=== PATIENT | female | born 1960 | race Caucasian/White ===

== ENCOUNTER 2018-04-16 17:15 | Inpatient (IN) ==
[2018-04-16] MEDS ORDERED: Dextrose 50% in Water 50 ML Vial IV.PUSH PRN (22:37)
[2018-04-16] MEDS ORDERED: Bisacodyl 10 MG Supp RECTAL PRN (22:37)
--- NOTE | 2018-04-16 22:44 | P.HPCC ---
History of Present Illness Primary Care Physician: No Primary Care Physician History of Present Illness: 57-year-old -[place]ian female with past medical history significant for diabetes mellitus, hypertension, dyslipidemia, presented to emergency department at [facility] as a wake up STROKE. Her chief complaint was left upper and left lower extremity weakness that began when she woke up in the morning. She had no symptoms when she went to bed in the evening and night before. She denies any visual changes, headaches, nausea, or vomiting. She denies experiencing similar symptoms in the past. Prior to episode patient was in her usual health of state. The patient is 55-year-old brother recently had a stroke a few months ago. She denies any chest pain, palpitation, shortness of breath or diaphoresis. She denies any recent changes in medications, but does take estradiol. She denies tobacco abuse. MRI of the brain shows multiple infarcts in the right cerebral hemisphere mainly in the frontal lobe, temporal lobe, and a infarct affecting the caudate nucleus. 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 This is most likely the cause of her stroke and patient was therefore transferred to [facility] for higher level of care neurosurgery evaluation by Dr. Knight. Inpatient Certification: I certify that the inpatient services were ordered in accordance with Medicare regulations governing the order. This includes certification that hospital inpatient services are reasonable and necessary and in the case of services not specified as inpatient-only under 42 CFR 419.22(n), that they are appropriately provided as inpatient services in accordance to with the 2-midnight benchmark under 43 CFR 412.3(e) Estimated Total Length of Stay (Days): 5 Plans for Post Hospital Care: Not yet determined Review of Systems Constitutional: Denies anorexia, Denies body ache(s), Denies chills, Denies daytime sleepiness, Denies excessive sweating, Denies fatigue, Denies fever(s), Denies headache(s), Denies increased appetite, Denies lack of energy, Denies malaise, Denies night sweats, Denies weakness, Denies weight gain, Denies weight loss, Denies other Eyes: Denies blind spots, Denies blurry vision, Denies bulging eyes, Denies change in vision, Denies double vision, Denies discharge, Denies dry eyes, Denies floaters, Denies irritation, Denies itchy eyes, Denies loss of vision, Denies pain, Denies requires corrective lenses, Denies sensitivity to light, Denies other Ears, Nose, Mouth, and Throat: Denies abnormal hearing, Denies bleeding gums, Denies bad breath, Denies change in voice, Denies dental pain, Denies difficulty swallowing, Denies dizziness, Denies dry mouth, Denies ear discharge , Denies ear pain, Denies facial pain, Denies headache(s), Denies hearing loss, Denies hoarseness, Denies lip swelling, Denies nosebleed, Denies mouth lesions, Denies mouth pain, Denies nasal congestion, Denies nasal discharge, Denies nasal obstruction, Denies nasal trauma, Denies neck lump, Denies neck pain, Denies nose pain, Denies pain with swallowing, Denies poor balance, Denies post nasal drip, Denies ringing in the ears, Denies sinus pain, Denies sinus pressure , Denies sore throat, Denies throat swelling, Denies tongue swelling, Denies other Cardiovascular: Denies chest pain, Denies chest pain at rest, Denies chest pain with activity, Denies excessive sweating, Denies fainting, Denies fast heart rate, Denies foot swelling, Denies generalized swelling, Denies irregular heart rhythm, Denies leg pain with activity, Denies leg sores, Denies leg swelling, Denies lightheadedness, Denies radiating jaw, neck or arm pain, Denies rapid, pounding, or irregular heartbeat, Denies shortness of breath, Denies shortness of breath with activity, Denies shortness of breath when lying down, Denies shortness of breath causing sudden awakening, Denies slow heart rate, Denies other Respiratory: Denies change in phlegm color, Denies chest congestion, Denies cough, Denies coughing up blood, Denies excessive phlegm production, Denies pain on inspiration, Denies pain with cough, Denies shortness of breath, Denies shortness of breath with activity, Denies snoring, Denies stridor, Denies wheezing, Denies other Gastrointestinal: Denies abdominal pain, Denies belching, Denies black, tarry stools, Denies bloating, Denies bright, red blood in stools, Denies change in bowel habits, Denies constant urge to pass stool, Denies change in stools, Denies coffee ground vomit, Denies constipation, Denies cramping, Denies difficulty swallowing, Denies excessive passing of gas, Denies feeling full early, Denies heartburn, Denies incontinent of stools, Denies loose stools, Denies nausea, Denies pain with swallowing, Denies vomiting, Denies vomiting blood, Denies other Genitourinary: Denies abnormal periods, Denies abnormal vaginal bleeding, Denies absent period, Denies bleeding between periods, Denies blood in urine, Denies difficulty starting urination, Denies difficulty urinating, Denies dribbling after urination, Denies frequent nighttime urination, Denies genital itching, Denies genital lesions, Denies heavy periods, Denies hot flashes, Denies light periods, Denies nipple discharge, Denies painful intercourse, Denies painful periods, Denies painful urination, Denies pelvic pain, Denies prolapse symptoms, Denies sexual problems, Denies side pain, Denies urinary incontinence, Denies urinary urgency, Denies vaginal discharge, Denies vaginal dryness, Denies vaginal odor, Denies vaginal itching, Denies other Musculoskeletal: Reports abnormal walking, Denies back pain, Denies body aches, Denies decreased muscle mass, Denies deformity, Denies joint pain, Denies joint swelling, Denies limited joint movement, Denies loss of height, Denies muscle cramps, Denies muscle weakness, Denies neck pain, Denies numbness, Denies radiating pain into limb, Denies stiffness, Denies tingling, Denies other Skin/Breast: Denies acne, Denies bleeding lesions, Denies boil, Denies breast swelling, Denies breast skin changes, Denies breast pain, Denies breast lump, Denies change in breast shape, Denies change in hair, Denies change in skin color, Denies changing lesions, Denies dry skin, Denies excessive hair growth, Denies hair loss, Denies itching, Denies lesions, Denies nail changes, Denies new lesions, Denies nipple discharge, Denies non-healing lesions, Denies redness , Denies sensitivity to light, Denies rash, Denies skin pain, Denies skin ulcer , Denies sores, Denies stretch sp[place], Denies unusual bruising, Denies wounds, Denies yellowing of the skin, Denies other Neurologic: Reports abnormal movements, Reports abnormal walking, Reports localized weakness, Reports sensory deficit, Denies abnormal hearing, Denies abnormal speech, Denies behavioral changes, Denies burning sensations, Denies confusion, Denies dizziness, Denies fainting, Denies frequent falls, Denies headache(s), Denies lack of coordination, Denies loss of vision, Denies memory loss, Denies numbness, Denies other visual disturbances, Denies radiating pain, Denies restless legs, Denies convulsions, Denies seizure-like activity, Denies tingling, Denies tingling/numbness/burning sensations, Denies tremor(s), Denies unsteadiness, Denies weakness, Denies other Psychiatric: Denies abnormal sleep pattern, Denies anxiety, Denies behavioral changes, Denies change in appetite, Denies change in sex drive, Denies confusion , Denies depression, Denies difficulty concentrating, Denies hearing things others do not hear, Denies hopelessness, Denies irritability, Denies lack of enjoyment, Denies memory loss, Denies mood swings, Denies panic attacks, Denies paranoia, Denies seeing things others do not see, Denies sensing things others do not sense, Denies tactile hallucinations, Denies thoughts of hurting/killing others, Denies thoughts of hurting/killing yourself, Denies other PMFSH - Medical History Medical History: Medical History (Last Updated 04/16/18 @ 22:27 by Megha Frost RN) Diabetes mellitus Hyperlipemia Hypertension - Tobacco History Second Hand Smoke Exposure: No Tobacco Use In Past 30 Days: No Smoking Status: Never smoker - Alcohol History How Often Do You Have a Drink Containing Alcohol: Never - Substance Use History Substance History: No History of Abuse - Travel History History of Recent Travel: No Recent Travel in the [place] Within the Last 8 Weeks: No Recent Travel Out of the Country Within the Last 8 Weeks: No Medications and Allergies Active Medications: Active Medications Al Hydroxide/Mg Hydroxide (Milk Of Magnesia Liq) 30 ml PO Q12H PRN PRN Reason: Mild Constipation Amlodipine Besylate (Norvasc) 5 mg PO DAILY [facility] Atorvastatin Calcium (Lipitor) 20 mg PO DAILY [facility] Bisacodyl (Dulcolax Supp) 10 mg RECTAL DAILY PRN PRN Reason: SEVERE CONSITIPATION Chlorhexidine Gluconate (Chlorhexidine 2% Cloth) 3 pack TOPICAL DAILY@0400 PRN PRN Reason: Extra cloth needed Stop: 04/22/18 03:59 Chlorhexidine Gluconate (Chlorhexidine 2% Cloth) 3 pack TOPICAL DAILY@0400 [facility] Stop: 04/22/18 03:59 Dextrose (D50w Vial) 50 ml IV.PUSH UNSCH PRN PRN Reason: PER HYPOGLYCEMIA PROTOCOL Famotidine (Pepcid) 20 mg PO BID [facility] Famotidine (Pepcid Pf Inj) 20 mg IV.PUSH Q12HR [facility] Glucagon (Glucagon Inj) 1 mg OTHER PRN PRN PRN Reason: for Hypoglycemia Protocol Heparin Sodium (Porcine) (Heparin Inj) 5,000 units SQ Q8H [facility] Sodium Chloride (Ns Inj) 1,000 mls @ 84 mls/hr IV.CONT .[id number] [facility] Insulin Aspart (Novolog Insulin Suppl Scale Inj) 0 unit SQ ACHS [facility]; Protocol Lactulose (Lactulose Liq) 30 ml PO DAILY PRN PRN Reason: SEVERE CONSITIPATION Senna/Docusate Sodium (Carolyn-Colace) 1 tab PO BID [facility] Sennosides (Senokot) 17.2 mg PO Q12H PRN PRN Reason: Moderate Constipation Sodium Chloride (Ns Flush) 2 ml IV.FLUSH PRN PRN PRN Reason: FLUSH AFTER USING IV ACCESS Temazepam (Restoril) 15 mg PO HS PRN PRN Reason: INSOMNIA Valsartan (Diovan) 160 mg PO BID [facility] Allergies Allergy/AdvReac Type Severity Reaction Status Date / Time No Known Allergies Allergy Unverified 04/16/18 22:32 Home Medications Medication Instructions Recorded Confirmed Type alprazolam [Xanax] 1 PO HS PRN 04/16/18 History amlodipine [Norvasc] 5 mg PO DAILY 04/16/18 04/16/18 History atorvastatin [Lipitor] 20 mg PO DAILY 04/16/18 04/16/18 History metformin [Glucophage] 1,000 mg PO BID 04/16/18 04/16/18 History valsartan [Diovan] 160 mg PO BID 04/16/18 04/16/18 History Exam Vital signs: Intake & Output 04/16/18 04/16/18 04/17/18 06:59 18:59 06:59 Weight 76.5 kg Other: Weight On Admission 78.5 kg - Constitutional no acute distress - Routine HEENT Exam Head: Present: normocephalic, atraumatic Eye: Present: PERRL ENT: Present: mucous membranes moist - Routine Neck Exam Present: supple, full ROM. Absent: JVD - Routine Respiratory Exam Absent: accessory muscle use, rales, respiratory distress, rhonchi, stridor - Routine Cardiovascular Exam Present: RRR, S1, S2 - Routine Abdominal Exam Present: soft, normoactive bowel sounds - Detailed Abdominal Exam Palpation/Percussion: Absent: hepatomegaly - Routine Extremities Exam Absent: cyanosis, clubbing, edema - Routine Skin Exam Present: intact - Routine Neurological Exam Present: alert, oriented X3 Left-sided hemiplegia in upper and lower extremities Caprini VTE Risk Assessment Caprini VTE Risk Assessment: Moderate/High Risk (score >= 2) Caprini Risk Assessment Model: Point Value = 1 Point Value = 2 Point Value = 3 Point Value = 5 Age 41-60 Minor surgery BMI > 25 kg/m2 Swollen legs Varicose veins or History of unexplained or recurrent spontaneous Oral contraceptives or hormone replacement Sepsis (< 1 month) Serious lung disease, including pneumonia (< 1 month) Abnormal pulmonary function Acute myocardial infarction Congestive heart failure (< 1 month) History of inflammatory bowel disease Medical patient at bed rest Age 61-74 Arthroscopic surgery Major open surgery (> 45 min) Laparoscopic surgery (> 45 min) Malignancy Confined to bed (> 72 hours) Immobilizing plaster cast Central venous access Age >= 75 History of VTE Family history of VTE Factor V Leiden Prothrombin [id number] Lupus anticoagulant Anticardiolipin antibodies Elevated serum homocysteine Heparin-induced thrombocytopenia Other congenital or acquired thrombophilia Stroke (< 1 month) Elective arthroplasty Hip, pelvis, or leg fracture Acute spinal cord injury (< 1 month) Prophylaxis Regimen: Total Risk Factor Score Risk Level Prophylaxis Regimen 0-1 Low Early ambulation 2 Moderate Order ONE of the following: *Sequential Compression Device (SCD) *Heparin 5000 units SQ BID 3-4 Higher Order ONE of the following medications: *Heparin 5000 units SQ TID *Enoxaparin/Lovenox 40 mg SQ daily (WT < 150 kg, CrCl > 30 mL/min) *Enoxaparin/Lovenox 30 mg SQ daily (WT < 150 kg, CrCl > 10-29 mL/min) *Enoxaparin/Lovenox 30 mg SQ BID (WT < 150 kg, CrCl > 30 mL/min) AND/OR *Sequential Compression Device (SCD) 5 or more Highest Order ONE of the following medications: *Heparin 5000 units SQ TID (Preferred with Epidurals) *Enoxaparin/Lovenox 40 mg SQ daily (WT < 150 kg, CrCl > 30 mL/min) *Enoxaparin/Lovenox 30 mg SQ daily (WT < 150 kg, CrCl > 10-29 mL/min) *Enoxaparin/Lovenox 30 mg SQ BID (WT < 150 kg, CrCl > 30 mL/min) AND *Sequential Compression Device (SCD) Assessment and Plan - Assessment and Plan Plan: Subacute CVA -No indication for anticoagulation due to complete stroke -Neurology consultation -Aspirin, atorvastatin -PT and OT eval and treat as tolerated Right internal carotid atheroma -Vascular surgery consultation for evaluation of surgical intervention if indicated Hypertension -Norvasc, losartan Dyslipidemia -Atorvastatin Diabetes mellitus -Insulin sliding scale DVT GI prophylaxis -Teds SCDs -Subcu heparin -Pepcid Critical Care: The total critical care time was 35 minutes. Time to perform other separately billable procedures was not included in the critical care time.
[2018-04-16] MEDS: Heparin - SQ 10,000 UNITS/ML Vial SQ SCH (23:57)
[2018-04-16] MEDS: Sod Chloride 0.9% Inj 1,000 ML IV.CONT SCH (23:58)
[2018-04-16] MEDS: Temazepam 15 MG Capsule PO PRN (23:58)
--- NOTE | 2018-04-17 03:33 | CT ---
EXAM DATE: 04/17/2018 3:22 AM EDT AGE/SEX: 57 years / Female INDICATIONS: Stroke alert; slurred speech. CLINICAL DATA: This is the patient's initial encounter. Patient reports that signs and symptoms have been present for 1 day and indicates a pain score of Nonresponsive. MEDICAL/SURGICAL HISTORY: Stroke. None. RADIATION DOSE: 42.45 CTDI (mGy) COMPARISON: No prior exams available for comparison. Report was called by [ Dr. Hogue to Dr. Crowder at 0330. TECHNIQUE: CT of the head without contrast. Using automated exposure control and adjustment of the mA and/or kV according to patient size, radiation dose was kept as low as reasonably achievable to ob tain optimal diagnostic quality images. DICOM format image data is available electronically for revi ew and comparison. FINDINGS: Cerebrum: 1.5 cm hypodensity in the right frontal cortex on image #24. 2 cm hypodensity in the right temporal cortex on image #12. No evidence of mass effect. No acute intracranial hemorrhage. No midli ne shift. Ventricles within normal limits. Posterior Fossa: The cerebellum and brainstem are intact. The 4th ventricle is midline. The cerebe llopontine angle is unremarkable. Extracranial: The visualized portion of the orbits is intact. Skull: The calvaria is intact. No evidence of skull fracture. CONCLUSION: Nonspecific 1 to 2 cm cortical hypodensities in the right frontal and right temporal regions. May rep resent age-indeterminate ischemic change. No mass effect or acute hemorrhage identified. Electronically signed by: Mike Hogue MD 04/17/2018 3:32 AM EDT
[2018-04-17 03:47] LABS: Activated Partial Thrombo Time 24.2 sec (24.3-30.1); Prothrombin Time 10.5 sec (9.8-11.6)
[2018-04-17] MEDS ORDERED: Chlorhexidine Gluconate 2% 1 Pack (2 Cloths) TOPICAL PRN (04:00)
[2018-04-17 04:16] LABS: Baso # (Auto) 0.1 th/mm3 (0.0-0.2); Baso % (Auto) 1.2 % (0.0-2.0); Eos # (Auto) 0.2 th/mm3 (0.0-0.4); Eos % (Auto) 2.6 % (0.0-4.0); Hematocrit 41.3 % (35.0-46.0); Hemoglobin 13.9 gm/dL (11.6-15.3); Lymph # (Auto) 3.2 th/mm3 (1.0-4.8); Lymph % (Auto) 40.9 % (9.0-44.0); Mean Corpuscular HGB Conc 33.7 % (32.0-36.0); Mean Corpuscular Hemoglobin 29.9 pg (27.0-34.0); Mean Corpuscular Volume 88.9 fL (80.0-100.0); Mono # (Auto) 0.5 th/mm3 (0.0-0.9); Mono % (Auto) 6.1 % (0.0-8.0); Neut # (Auto) 3.8 th/mm3 (1.8-7.7); Neut % (Auto) 49.2 % (16.0-70.0); Platelet Count 220 th/mm3 (150-450); Red Blood Count 4.65 mil/mm3 (4.00-5.30); Red Cell Distribution Width 14.6 % (11.6-17.2); White Blood Count 7.8 th/mm3 (4.0-11.0)
--- NOTE | 2018-04-17 04:25 | CT ---
EXAM DATE: 04/17/2018 4:13 AM EDT AGE/SEX: 57 years / Female INDICATIONS: Stroke alert; slurred speech. CLINICAL DATA: This is the patient's initial encounter. Patient reports that signs and symptoms have been present for 1 day and indicates a pain score of Nonresponsive. MEDICAL/SURGICAL HISTORY: Stroke. None. RADIATION DOSE: 17.66 CTDI (mGy) ; Combined studies COMPARISON: No prior exams available for comparison. TECHNIQUE: Volumetric scanning was performed using a multi-row detector CT scanner during bolus infu sandra of 100 ml Omnipaque 350 (iohexol) nonionic water-soluble contrast as a cumulative dose for mult iple exams. The data was post processed with a variety of visualization algorithms including full v olume maximum intensity projection, multi-planar sliding thin slab reformation, curved planar reforma tion, and surface rendering techniques. Using automated exposure control and adjustment of the mA an d/or kV according to patient size, radiation dose was kept as low as reasonably achievable to obtain optimal diagnostic quality images. DICOM format image data is available electronically for review an d comparison. FINDINGS: There is cut off of the posterior division of the right MCA distal to the trifurcation. Asymmetric de creased opacification of branches to the right parietal lobe and temporal lobe noted. No central occl usion or high-grade stenosis is seen. Anterior and posterior cerebral arteries are widely patent. Intracranial portions of the internal car otid arteries are patent. CONCLUSION: Occlusion of the posterior division of the right MCA proximally 1.7 cm distal to the trifurcation. Electronically signed by: Mike Hogue MD 04/17/2018 4:23 AM EDT
--- NOTE | 2018-04-17 04:41 | CT ---
EXAM DATE: 04/17/2018 4:34 AM EDT AGE/SEX: 57 years / Female INDICATIONS: Stroke alert; slurred speech. CLINICAL DATA: This is the patient's initial encounter. Patient reports that signs and symptoms have been present for 1 day and indicates a pain score of 5/10. MEDICAL/SURGICAL HISTORY: Stroke. None. RADIATION DOSE: 17.66 CTDI (mGy) ; Combined studies COMPARISON: No prior exams available for comparison. TECHNIQUE: Volumetric scanning was performed using a multirow detector CT scanner during bolus infus ion of 100 ml Omnipaque 350 (iohexol) nonionic water-soluble contrast as a cumulative dose for multi ple exams. The data was postprocessed with a variety of visualization algorithms including full-vol ume maximum intensity projection, multiplanar sliding thin-slab reformation, curved-planar reformatio n, and surface-rendering techniques. Using automated exposure control and adjustment of the mA and/o r kV according to patient size, radiation dose was kept as low as reasonably achievable to obtain opt imal diagnostic quality images. DICOM format image data is available electronically for review and c omparison. Elevated flow velocities and ICA/CCA ratios have been found to correlate with increased degrees of ve ssel stenosis, calculated as percentage of diameter relative to a normal segment of distal ICA/CCA. FINDINGS: There is focal eccentric plaque in the mid right common carotid artery resulting in approximately 50% stenosis. This is 5 cm proximal to the bifurcation. No other significant plaque or stenosis identifi ed in the carotid arteries on the right or left. Proximal subclavian arteries are widely patent. Vert ebral arteries are symmetric and widely patent. CONCLUSION: 1. Focal eccentric plaque of the mid right common carotid artery resulting in approximately 50% sten osis. 2. No hemodynamically significant carotid stenosis identified. Electronically signed by: Mike Hogue MD 04/17/2018 4:40 AM EDT
[2018-04-17 04:54] LABS: Atypical Lymphs 7 % (0-0); Eosinophils 4 % (0-4); Lymphocytes 37 % (9-44); Metamyelocytes 2 % (0-1); Monocytes 4 % (0-8); Myelocytes 1 % (0-0); Platelet Estimate Normal (Normal); RBC Morphology Normal (Normal)
[2018-04-17] MEDS ORDERED: Atropine Inj 1 MG/10 ML Syringe ONE (05:36)
--- NOTE | 2018-04-17 06:25 | MB ---
cc: Kash Crowder MD, PhD DATE: 04/17/2018 REASON FOR CONSULTATION: Stroke. HISTORY OF PRESENT ILLNESS: Ms. Saucedo is a 57-year-old female, who 2 days ago developed the acute onset of left-sided weakness involving the arm and leg and was admitted to [facility]. She was weak in both the left arm and left leg, had flaccid paralysis and inability to move those extremities. She had an MRI of the brain done showing multiple infarcts in the right hemisphere, mainly frontal lobe, temporal lobe and also of the caudate nucleus. Carotid ultrasound revealed a mobile plaque in the right common carotid artery. She was transferred to [facility] for further evaluation regarding the right carotid plaque. At about 3:00 this morning, she had an acute change in her neurologic status. She developed severe dysarthria, which is new; a left facial droop, which was new and also a right gaze, which was new. PAST MEDICAL HISTORY: Remarkable for hypertension, diabetes, and hyperlipidemia. SOCIAL HISTORY: No history of tobacco use. No history of alcohol use. No history of substance abuse. CURRENT MEDICATIONS: 1. Lipitor 20 mg daily. 2. Norvasc 5 mg daily. 3. Dulcolax suppository. 4. Pepcid. 5. Subcutaneous heparin 5000 units every 8 hours. 6. Sliding scale insulin. 7. Lactulose. 8. Senokot. 9. Restoril. 10. Diovan. NEUROLOGIC EXAMINATION. VITAL SIGNS: Blood pressure is 172/80, pulse 73. She is in normal sinus rhythm, respirations are 16, temperature 98.6 degrees. HIGHER CORTICAL FUNCTION: She is lethargic, but easily arousable. She follows commands. Her speech is very dysarthric, not aphasic. She can repeat simple phrases with dysarthria. CRANIAL NERVE EXAM: She has a right gaze preference, but she is able to move the eyes conjugately past midline to the left. Pupils are 2 mm, symmetric and reactive to light. Visual howard grossly intact to confrontation. She does have a moderate left upper motor neuron cranial nerve VII palsy. Tongue protrudes in the midline. Other cranial nerves are intact. MOTOR EXAM: She is flaccid in the left arm and left leg with essentially 0/5 strength left arm and left leg, with normal strength on the right. Reflexes are 2+ symmetric. Sensation is diminished in left arm and left leg to soft touch compared with the right. IMAGING STUDIES: Since the change in neurologic status, we did obtain a stat CT which is reviewed showing two areas of hypodensity measuring 1-2 cm, one in the right frontal area and one in the right temporal region representing age indeterminate ischemic changes. There is no hemorrhage. CT angiogram was also obtained since her neurologic change. CTA of the head reveals occlusion of the posterior division of the right MCA and the M2 area approximately 1.7 cm distal to the trifurcation. CT angiogram of the neck is reviewed as well and shows focal eccentric plaque in the right mid common carotid artery with approximately 50% stenosis located about 5 cm proximal to the bifurcation. LABORATORY DATA: The white count is 7800; hemoglobin 13.9; hematocrit 41.3%; platelets are 220,000. PT 10.5, INR 1.0, APTT 24.2. Sodium is 139, potassium 3.9, chloride 101, BUN is 15, creatinine 0.7, glucose is 172. IMPRESSION AND RECOMMENDATIONS: Right middle cerebral artery distribution stroke, which initially occurred 2 days ago. There has been a recent change in neurologic status, probably reflecting an additional infarct in the right middle cerebral artery territory. She does have evidence of a plaque in the right carotid, which may be etiologic in this. I have discussed the case with Dr. Carbone of interventional radiology for evaluation as to whether or not the patient would be a candidate for intervention. Currently, the concern is the distal nature of the middle cerebral artery thrombus as well as the timing given the fact that she had a stroke 2 days ago, likely excludes her as a candidate for intervention. However, I will evaluate the patient further with an MRI as well as an MR perfusion study to further evaluate the age of the infarct. Further recommendations forthcoming after the MRI scan is obtained, which will be done on an emergent basis. Thank you for asking me to see this patient in consultation. Kash Crowder MD, PhD STEVEN/LUKE , 05:09 AM , 06:24 AM
[2018-04-17 06:29] LABS: Alanine Aminotransferase 25 U/L (10-53); Albumin 3.4 g/dL (3.4-5.0); Anion Gap 10 meq/L (5-15); Aspartate Aminotransferase 18 U/L (15-37); Blood Urea Nitrogen 13 mg/dL (7-18); Calcium 9.1 mg/dL (8.5-10.1); Carbon Dioxide 25.6 meq/L (21.0-32.0); Chloride 101 meq/L (98-107); Cholesterol 233 mg/dL (120-200); Glomerular Filtration Rate 79 mL/min (>89); Glucose,Random 190 mg/dL (74-106); Magnesium 1.9 mg/dL (1.5-2.5); Phosphorus 3.4 mg/dL (2.5-4.9); Potassium 3.9 meq/L (3.5-5.1); Sodium 137 meq/L (136-145); Triglycerides 215 mg/dL (42-150)
[2018-04-17 06:31] LABS: Alkaline Phosphatase 87 U/L (45-117); Chol/HDL Ratio 6.24 Ratio; HDL Cholesterol 37.3 mg/dL (40.0-60.0); LDL Cholesterol,Calculated 153 mg/dL (0-99); Total Protein 7.8 g/dL (6.4-8.2)
--- NOTE | 2018-04-17 06:44 | MR ---
EXAM DATE: 04/17/2018 6:28 AM EDT AGE/SEX: 57 years / Female INDICATIONS: Stroke. Slurred speech. CLINICAL DATA: This is the patient's initial encounter. Patient reports that signs and symptoms have been present for 2 days and indicates a pain score of 9/10. MEDICAL/SURGICAL HISTORY: Hypertension. Diabetes mellitus type II. Colostomy. Gastric bypass. COMPARISON: No prior exams available for comparison. TECHNIQUE: Multiplanar, multisequence examination of the brain was performed without and with 20 ml O mniscan (gadodiamide) contrast as a single exam dose. FINDINGS: Diffusion Imaging: Multiple areas of restricted diffusion are seen in the distribution of the right middle cerebral artery. The largest confluent area of restricted diffusion is seen in the right parie young lobe measuring 6 cm x 4 cm. 4.6 x 1.2 cm area is seen in the lateral right temporal lobe. 1 cm fo cus of restricted diffusion is seen in the right caudate nucleus. No foci of restricted diffusion on the left. Cerebrum: Areas of signal abnormality are seen on the FLAIR images/ T2-weighted images correlating w ith the areas of restricted diffusion in the right cerebral hemisphere. The largest area of restricte d diffusion in the right parietal lobe correlates with a faint area of signal abnormality on FLAIR im ages. No evidence of mass effect or midline shift. No acute intracranial hemorrhage or extra-axial fl uid collection. Ventricles within normal limits. Posterior Fossa: The cerebellum and brainstem are intact. The 4th ventricle is midline. The cerebel lopontine angle is unremarkable. The cerebellar tonsils are normal in position. Extracranial: The visualized portions of the orbits and paranasal sinuses are unremarkable. Post Contrast: No abnormal areas of parenchymal or dural enhancement. No evidence of blood-brain ba rrier breakdown. CONCLUSION: Multiple areas of acute infarct in the distribution of the right MCA. Largest area involves the right parietal lobe. No evidence of midline shift/herniation. No evidence of hemorrhage. Electronically signed by: Mike Hogue MD 04/17/2018 6:43 AM EDT
[2018-04-17] MEDS: Chlorhexidine Gluconate 2% 1 Pack (2 Cloths) TOPICAL SCH (06:50)
[2018-04-17] MEDS ORDERED: Gadodiamide PF Inj 287 MG/ML 5 ML Syringe (for RAD MRI) IVCONTRAST ONE (06:53)
--- NOTE | 2018-04-17 08:03 | MR ---
EXAM DATE: 04/17/2018 7:08 AM EDT AGE/SEX: 57 years / Female INDICATIONS: Stroke. CLINICAL DATA: This is the patient's initial encounter. Patient reports that signs and symptoms have been present for 2 days and indicates a pain score of 8/10. MEDICAL/SURGICAL HISTORY: Hypertension. Diabetes mellitus type II. Hypercholesterolemia. [place] stomy. Gastric bypass. COMPARISON: C, MR HEAD W & W/O CONTRAST, 04/17/2018. C, CTA HEAD W CONTRAST W 3D, 04/17/2018. C, CT HEAD W/O CONTRAST, 04/17/2018. . TECHNIQUE: Whole brain MRI perfusion was performed with 20 ml Omniscan (gadodiamide) contrast as a s melecio exam dose. Parametric maps generated included time to peak, mean transit time, cerebral blood volume and cerebral blood flow. FINDINGS: There is an area of decreased perfusion in the right parietal lobe corresponding with an area of acut e infarction. There is decreased time to peak, mean transit time, cerebral blood volume and cerebral blood flow. This corresponds to the area of restricted diffusion on prior MRIs of the brain consisten t with infarcted core. No signs of penumbra. No other areas of significant significant perfusion abno rmality bilaterally. CONCLUSION: 1. Infarction right parietal lobe. Electronically signed by: Harsha Frances MD 04/17/2018 8:02 AM EDT
[2018-04-17] MEDS: Aspirin 325 MG Tablet PO SCH (08:43)
[2018-04-17] MEDS: Heparin - SQ 10,000 UNITS/ML Vial SQ SCH ×3 (08:59→23:23)
[2018-04-17] MEDS: amLODIPine 5 MG Tablet PO SCH (09:02)
[2018-04-17] MEDS: Senna/Docusate Sodium 8.6/50 MG Tablet PO SCH ×2 (09:03→21:31)
[2018-04-17] MEDS: Famotidine PF Inj 20 MG/2 ML Vial IV.PUSH SCH ×2 (09:03→21:31)
[2018-04-17] MEDS: Insulin NovoLOG Aspart Correctional Sugar Inj SQ SCH ×4 (09:04→21:31)
[2018-04-17] MEDS: Famotidine 20 MG Tablet PO SCH ×2 (09:05→21:31)
--- NOTE | 2018-04-17 09:44 | P.CONVS ---
History of Present Illness Service: ICU Consult date: 04/17/18 Requesting Physician: Goran Andino Reason for Consult: Stroke Primary Care Provider: No Primary Care Physician Chief Complaint: Stroke History of Present Illness: 57 yo female who by report awoke morning with L hemiparesis and inability to walk. Presented to OSH and I rec'd a call yesterday req transfer. Admitted to ICU and overnight had worsening of stroke/new symptoms manifesting as dysarthria. According to RN, that has slightly improved. Still able to swallow some by report. Pt largely noncommunicative at present so history obtained from EMR, RN, and outside physician. Review of Systems unobtainable due to mental status PMFSH - History History Provided By: Medical Record - Medical History Medical History: Medical History (Last Reviewed 04/17/18 @ 09:38 by Delvis Knight MD) Diabetes mellitus Hyperlipemia Hypertension Stroke - Surgical History Surgical History: Surgical History (Last Reviewed 04/17/18 @ 09:38 by Delvis Knight MD) H/O gastric bypass Hx of cholecystectomy - Family History Family History: Family History (Last Updated 04/17/18 @ 09:39 by Delvis Knight MD) Other Stroke - Tobacco History Second Hand Smoke Exposure: No Tobacco Use In Past 30 Days: No Smoking Status: Never smoker - Alcohol History How Often Do You Have a Drink Containing Alcohol: Never - Substance Use History Substance History: No History of Abuse - Travel History History of Recent Travel: No Recent Travel in the [place] Within the Last 8 Weeks: No Recent Travel Out of the Country Within the Last 8 Weeks: No - Immunization History Tetanus Immunization: Unsure Hx Influenza Vaccine This Season: No Medications and Allergies Active Medications: Active Medications Al Hydroxide/Mg Hydroxide (Milk Of Indu James) 30 ml PO Q12H PRN PRN Reason: Mild Constipation Amlodipine Besylate (Norvasc) 5 mg PO DAILY [facility] Last Admin: 04/17/18 09:02 Dose: Not Given Aspirin (Aspirin) 325 mg PO DAILY [facility] Last Admin: 04/17/18 08:43 Dose: 325 mg Atorvastatin Calcium (Lipitor) 20 mg PO DAILY [facility] Last Admin: 04/17/18 09:02 Dose: 20 mg Bisacodyl (Dulcolax Supp) 10 mg RECTAL DAILY PRN PRN Reason: SEVERE CONSITIPATION Chlorhexidine Gluconate (Chlorhexidine 2% Cloth) 3 pack TOPICAL DAILY@0400 PRN PRN Reason: Extra cloth needed Stop: 04/22/18 03:59 Chlorhexidine Gluconate (Chlorhexidine 2% Cloth) 3 pack TOPICAL DAILY@0400 [facility] Stop: 04/22/18 03:59 Last Admin: 04/17/18 06:50 Dose: Not Given Clopidogrel Bisulfate (Plavix) 75 mg PO DAILY [facility] Last Admin: 04/17/18 08:42 Dose: 75 mg Dextrose (D50w Vial) 50 ml IV.PUSH UNSCH PRN PRN Reason: PER HYPOGLYCEMIA PROTOCOL Famotidine (Pepcid) 20 mg PO BID [facility] Last Admin: 04/17/18 09:05 Dose: Not Given Famotidine (Pepcid Pf Inj) 20 mg IV.PUSH Q12HR [facility] Last Admin: 04/17/18 09:03 Dose: 20 mg Glucagon (Glucagon Inj) 1 mg OTHER PRN PRN PRN Reason: for Hypoglycemia Protocol Heparin Sodium (Porcine) (Heparin Inj) 5,000 units SQ Q8H [facility] Last Admin: 04/17/18 08:59 Dose: 5,000 units Sodium Chloride (Ns Inj) 1,000 mls @ 84 mls/hr IV.CONT .[id number] [facility] Last Admin: 04/16/18 23:58 Dose: 84 mls/hr Insulin Aspart (Novolog Insulin Suppl Scale Inj) 0 unit SQ ACHS [facility]; Protocol Last Admin: 04/17/18 09:04 Dose: Not Given Lactulose (Lactulose Liq) 30 ml PO DAILY PRN PRN Reason: SEVERE CONSITIPATION Senna/Docusate Sodium (Carolyn-Colace) 1 tab PO BID [facility] Last Admin: 04/17/18 09:03 Dose: Not Given Sennosides (Senokot) 17.2 mg PO Q12H PRN PRN Reason: Moderate Constipation Sodium Chloride (Ns Flush) 2 ml IV.FLUSH PRN PRN PRN Reason: FLUSH AFTER USING IV ACCESS Temazepam (Restoril) 15 mg PO HS PRN PRN Reason: INSOMNIA Last Admin: 04/16/18 23:58 Dose: 15 mg Valsartan (Diovan) 160 mg PO BID [facility] Last Admin: 04/17/18 09:01 Dose: Not Given Allergies Allergy/AdvReac Type Severity Reaction Status Date / Time codeine AdvReac Intermediate Itching Verified 04/16/18 23:51 Home Medications Medication Instructions Recorded Confirmed Type alprazolam [Xanax] 1 mg PO HS PRN 04/16/18 04/17/18 History amlodipine [Norvasc] 5 mg PO DAILY 04/16/18 04/17/18 History atorvastatin [Lipitor] 20 mg PO DAILY 04/16/18 04/17/18 History metformin [Glucophage] 1,000 mg PO BID 04/16/18 04/17/18 History valsartan [Diovan] 160 mg PO BID 04/16/18 04/17/18 History Physical Exam Vital Signs / I&O: Vital Signs 04/16/18 22:10 04/16/18 22:37 04/17/18 00:00 Temperature 98.6 F Pulse Rate 80 73 83 Respiratory Rate 16 16 Blood Pressure 172/80 H 157/80 H Pulse Oximetry 99 99 04/17/18 00:10 04/17/18 01:09 04/17/18 02:55 Temperature Pulse Rate 74 Respiratory Rate Blood Pressure Pulse Oximetry 99 98 04/17/18 03:30 04/17/18 04:30 Temperature 97.9 F Pulse Rate 73 82 Respiratory Rate Blood Pressure 163/82 H Pulse Oximetry Intake & Output 04/16/18 04/17/18 04/17/18 18:59 06:59 18:59 Output Total 875 / 875 Balance -875 / -875 Weight 79 kg Output: Urine 350 / 350 Urine Amount (Catheter) 525 / 525 Indwelling Temp Sensing 525 / 525 Catheter Other: Date of Last Bowel Movement 04/14/18 # Bowel Movements 0 Weight On Admission 78.5 kg Neuro: L hemiparesis; R UE and LE moves ok answers questions but dysarthric so difficult to comprehend + facial droop HEENT: facial droop; anicteric sclera Neck: no JVD Heart: reg rate, no M Lungs: clear B Laboratory Results - last 24 hr 04/17/18 04/17/18 04/17/18 00:15 02:56 03:05 WBC 7.8 RBC 4.65 Hgb 13.9 POC Hgb (Calc) Hct 41.3 POC Hct MCV 88.9 MCH 29.9 MCHC 33.7 RDW 14.6 Plt Count 220 MPV 9.0 Prelim Diff (Auto) Slide review pending Neut % (Auto) 49.2 Lymph % (Auto) 40.9 Henry % (Auto) 6.1 Eos % (Auto) 2.6 Baso % (Auto) 1.2 Neut # (Auto) 3.8 Lymph # (Auto) 3.2 Henry # (Auto) 0.5 Eos # (Auto) 0.2 Baso # (Auto) 0.1 WBC Differential Manual diff final Seg Neuts % (Manual) 44 Band Neuts % (Manual) 1 Lymphocytes % (Manual) 37 Atypical Lymphs % (Man) 7 H Monocytes % (Manual) 4 Eosinophils % (Manual) 4 Metamyelocytes % (Man) 2 H Myelocytes % (Man) 1 H Abs Neuts (Manual) 3.7 Differential Comment . Platelet Estimate Normal Platelet Morphology Enlarged H RBC Morphology Normal Hematology Comments PT INR APTT POC Sodium Sodium POC Potassium Potassium POC Chloride Chloride Carbon Dioxide Anion Gap POC BUN BUN Creatinine POC Creatinine Estimated GFR POC Glucose 186 H Random Glucose Calcium Phosphorus Magnesium Total Bilirubin AST ALT Alkaline Phosphatase Total Protein Albumin Triglycerides Cholesterol LDL Cholesterol, Calc HDL Cholesterol Cholesterol/HDL Ratio Nasal Screen MRSA (PCR) Not detected 04/17/18 04/17/18 04/17/18 03:05 03:05 05:39 WBC RBC Hgb POC Hgb (Calc) 13.6 Hct POC Hct 40.0 MCV MCH MCHC RDW Plt Count MPV Prelim Diff (Auto) Neut % (Auto) Lymph % (Auto) Henry % (Auto) Eos % (Auto) Baso % (Auto) Neut # (Auto) Lymph # (Auto) Henry # (Auto) Eos # (Auto) Baso # (Auto) WBC Differential Seg Neuts % (Manual) Band Neuts % (Manual) Lymphocytes % (Manual) Atypical Lymphs % (Man) Monocytes % (Manual) Eosinophils % (Manual) Metamyelocytes % (Man) Myelocytes % (Man) Abs Neuts (Manual) Differential Comment Platelet Estimate Platelet Morphology RBC Morphology Hematology Comments PT 10.5 INR 1.0 APTT 24.2 L POC Sodium 139 Sodium 137 POC Potassium 3.9 Potassium 3.9 POC Chloride 101 L Chloride 101 Carbon Dioxide 25.6 Anion Gap 10 POC BUN 15 BUN 13 Creatinine 0.76 POC Creatinine 0.7 Estimated GFR 79 L POC Glucose 172 H Random Glucose 190 H Calcium 9.1 Phosphorus 3.4 Magnesium 1.9 Total Bilirubin 0.5 AST 18 ALT 25 Alkaline Phosphatase 87 Total Protein 7.8 Albumin 3.4 Triglycerides 215 H Cholesterol 233 H LDL Cholesterol, Calc 153 H HDL Cholesterol 37.3 L Cholesterol/HDL Ratio 6.24 Nasal Screen MRSA (PCR) Impressions Head MRI 04/17/18 00:00 CONCLUSION: Multiple areas of acute infarct in the distribution of the right MCA. Largest area involves the right parietal lobe. No evidence of midline shift/herniation. No evidence of hemorrhage. Neck CTA 04/17/18 00:00 CONCLUSION: 1. Focal eccentric plaque of the mid right common carotid artery resulting in approximately 50% stenosis. 2. No hemodynamically significant carotid stenosis identified. Head CT 04/17/18 03:10 CONCLUSION: Nonspecific 1 to 2 cm cortical hypodensities in the right frontal and right temporal regions. May represent age-indeterminate ischemic change. No mass effect or acute hemorrhage identified. Head CTA 04/17/18 03:30 CONCLUSION: Occlusion of the posterior division of the right MCA proximally 1.7 cm distal to the trifurcation. Head MRA 04/17/18 04:56 CONCLUSION: 1. Infarction right parietal lobe. Assessment and Plan - Assessment (1) Stroke due to embolism of cerebral artery Code(s): I63.40 - Cerebral infarction due to embolism of unspecified cerebral artery Status: Acute - Plan 57 yo female with acute CVA about 48 hours ago and new deficit last night. CTA of neck shows R CCA atheromatous plaque but minimal carotid bifurcation disease. By report, has distal MCA occlusion 1. Medical management per ICU and neurology: antiplatelet and statin for sure; potentially anticoagulation but defer to their expertise 2. If MCA occlusion were to be treated endovascularly, would rec covered stent in proximal CCA since that would be route to MCA lesion. 3. If neuro stabilizes, could have retrograde CCA stent at some point but this wound be prophylactic and timing/indication not well established. Certainly would avoid in the acute setting. 4. Will follow Delvis Knight MD FACS RPVI continuing education instructor [facility] [phone]
--- NOTE | 2018-04-17 10:15 | MB ---
cc: Kash Crowder MD, PhD DATE: 04/17/2018 ADDENDUM Since the original dictation, the patient has undergone MRI scanning of the brain, including MRI perfusion. There are several areas of completed infarction in the right MCA territory. I reviewed this with Dr. Carbone of radiology. It is felt that the infarctions are complete and the patient is not a candidate for interventional therapy at this time. Given the fact that one of the infarcts is reasonably large, I would not start IV heparin at the present time due to the potential for hemorrhagic conversion, but will add Plavix 75 mg daily to aspirin 325 mg daily with close neurological checks. Kash Crowder MD, PhD STEVEN/LUKE , 07:40 AM , 07:57 AM
--- NOTE | 2018-04-17 10:52 | ECG ---
Date Performed: 04/17/2018 Time Performed: 07:55:44 PTAGE: 57 years EKG: Sinus rhythm Inferior/lateral ST-T changes are nonspecific Borderline ECG NO PREVIOUS TRACING DOCTOR: Sumit Montez Interpretating Date/Time 04/17/2018 10:51:32
--- NOTE | 2018-04-17 11:03 | P.PNCC ---
Subjective Subjective Remarks/Hospital Course: 04/16: 57 yo female who by report awoke morning with L hemiparesis and inability to walk. Presented to OSH and I rec'd a call yesterday req transfer. Admitted to ICU and overnight had worsening of stroke/new symptoms manifesting as dysarthria. According to RN, that has slightly improved. Still able to swallow some by report. Pt largely noncommunicative at present so history obtained from EMR, RN, and outside physician. 04/17: Resting in bed. Dense left hemiplegia. Being started on aspirin and Plavix per neurology. MRI showed right MCA territory ischemic infarcts. Objective Vital Signs / I&O: Vital Signs 04/16/18 22:10 04/16/18 22:37 04/17/18 00:00 Temperature 98.6 F Pulse Rate 80 73 83 Respiratory Rate 16 16 Blood Pressure 172/80 H 157/80 H Pulse Oximetry 99 99 04/17/18 00:10 04/17/18 01:09 04/17/18 02:55 Temperature Pulse Rate 74 Respiratory Rate Blood Pressure Pulse Oximetry 99 98 04/17/18 03:30 04/17/18 04:30 Temperature 97.9 F Pulse Rate 73 82 Respiratory Rate Blood Pressure 163/82 H Pulse Oximetry Intake & Output 04/16/18 04/17/18 04/17/18 18:59 06:59 18:59 Output Total 875 / 875 Balance -875 / -875 Weight 79 kg Output: Urine 350 / 350 Urine Amount (Catheter) 525 / 525 Indwelling Temp Sensing 525 / 525 Catheter Other: Date of Last Bowel Movement 04/14/18 # Bowel Movements 0 Weight On Admission 78.5 kg Result Diagrams: 04/17/18 03:05 04/17/18 05:39 Objective Remarks: HEENT/Neuro: No pallor or icterus, tongue moist, ALYSSA, Awake alert oriented 3 , dysarthria noted, left-sided facial weakness, dense left hemiplegia Neck: No JVD Chest/pulmonary: CTA bilaterally Cardiovascular: S1-S2 regular no gallop or murmur GI/abdomen: Soft, nontender, bowel sounds present Extremities: Warm bilaterally, no edema Assessment and Plan - Assessment and Plan Plan: Subacute CVA -No heparin per neurology in view of large right parietal infarct on MRI. -Neurology consultation noted. -Aspirin, plavix atorvastatin -PT and OT eval and treat as tolerated Right internal carotid atheroma -Vascular surgery consultation for evaluation of surgical intervention if indicated Hypertension -Norvasc, losartan Dyslipidemia -Atorvastatin Diabetes mellitus -Insulin sliding scale DVT GI prophylaxis -Teds SCDs -Subcu heparin -Pepcid
[2018-04-17] MEDS ORDERED: Acetaminophen 325 MG Tablet PO PRN (15:13)
[2018-04-17] MEDS: Sod Chloride 0.9% Inj 1,000 ML IV.CONT SCH ×2 (16:01→23:25)
[2018-04-17] MEDS: Acetaminophen 325 MG Tablet PO PRN (19:59)
[2018-04-18 00:17] LABS: Bacteria,Urine Rare /hpf; Bilirubin,Urine Negative (Negative); Clarity,Urine Clear (Clear); Color,Urine Straw (Yellw/Straw); Glucose,Urine (UA) 50 mg/dL (Negative); Leukocyte Esterase,Urine Negative (Negative); Mucus,Urine Few /lpf (Occasional); Nitrite,Urine Negative (Negative); Specific Gravity,Urine 1.011 (1.002-1.035); Squamous Epithelial Cell,Urine <1 /hpf (0-5)
[2018-04-18] MEDS: Acetaminophen 325 MG Tablet PO PRN ×2 (01:29→05:16)
[2018-04-18] MEDS: Chlorhexidine Gluconate 2% 1 Pack (2 Cloths) TOPICAL SCH (04:25)
[2018-04-18] MEDS: Famotidine 20 MG Tablet PO SCH ×2 (10:05→23:38)
[2018-04-18] MEDS: Aspirin 325 MG Tablet PO SCH (10:05)
[2018-04-18] MEDS: amLODIPine 5 MG Tablet PO SCH (10:06)
[2018-04-18] MEDS: Insulin NovoLOG Aspart Correctional Sugar Inj SQ SCH ×3 (10:06→18:05)
[2018-04-18] MEDS: Heparin - SQ 10,000 UNITS/ML Vial SQ SCH ×2 (10:06→16:49)
[2018-04-18] MEDS: Famotidine PF Inj 20 MG/2 ML Vial IV.PUSH SCH ×2 (10:06→23:37)
[2018-04-18] MEDS: Senna/Docusate Sodium 8.6/50 MG Tablet PO SCH ×2 (10:07→23:39)
--- NOTE | 2018-04-18 10:33 | P.PNNEU ---
Subjective Subjective Comments: No acute events reported Active Medications: Active Medications Generic Name Dose Route Start Last Admin Trade Name Freq PRN Reason Stop Dose Admin Acetaminophen 650 mg 04/17/18 15:12 04/18/18 05:16 Tylenol PO 650 mg Q4H PRN Administration PAIN 1 TO 10 Acetaminophen 650 mg 04/17/18 15:13 Tylenol PO Q4H PRN FEVER Al Hydroxide/Mg Hydroxide 30 ml 04/16/18 22:37 Milk Of Magnesia Liq PO Q12H PRN Mild Constipation Alprazolam 0.25 mg 04/18/18 10:00 Xanax PO Q8H PRN ANXIETY Amlodipine Besylate 5 mg 04/17/18 09:00 04/18/18 10:06 Norvasc PO Not Given DAILY [facility] Aspirin 325 mg 04/17/18 09:00 04/18/18 10:05 Aspirin PO 325 mg DAILY [facility] Administration Atorvastatin Calcium 20 mg 04/17/18 09:00 04/18/18 10:06 Lipitor PO 20 mg DAILY [facility] Administration Bisacodyl 10 mg 04/16/18 22:37 Dulcolax Supp RECTAL DAILY PRN SEVERE CONSITIPATION Chlorhexidine Gluconate 3 pack 04/17/18 04:00 Chlorhexidine 2% Cloth TOPICAL 04/22/18 03:59 DAILY@0400 PRN Extra cloth needed Chlorhexidine Gluconate 3 pack 04/17/18 04:00 04/18/18 04:25 Chlorhexidine 2% Cloth TOPICAL 04/22/18 03:59 3 pack DAILY@0400 [facility] Administration Clopidogrel Bisulfate 75 mg 04/17/18 09:00 04/18/18 10:05 Plavix PO 75 mg DAILY [facility] Administration Dextrose 50 ml 04/16/18 22:37 D50w Vial IV.PUSH UNSCH PRN PER HYPOGLYCEMIA PROTOCOL Famotidine 20 mg 04/17/18 09:00 04/18/18 10:05 Pepcid PO 20 mg BID [facility] Administration Famotidine 20 mg 04/17/18 09:00 04/18/18 10:06 Pepcid Pf Inj IV.PUSH Not Given Q12HR [facility] Glucagon 1 mg 04/16/18 22:37 Glucagon Inj OTHER PRN PRN for Hypoglycemia Protocol Heparin Sodium (Porcine) 5,000 units 04/16/18 23:00 04/18/18 10:06 Heparin Inj SQ 5,000 units Q8H [facility] Administration Sodium Chloride 1,000 mls @ 84 mls/hr 04/16/18 22:45 04/18/18 06:14 Ns Inj IV.CONT 84 mls/hr .[id number] [facility] Infusion Insulin Aspart 0 unit 04/17/18 08:00 04/18/18 10:06 Novolog Insulin Suppl Scale Inj SQ Not Given ACHS [facility] Protocol Lactulose 30 ml 04/16/18 22:37 Lactulose Liq PO DAILY PRN SEVERE CONSITIPATION Senna/Docusate Sodium 1 tab 04/17/18 09:00 04/18/18 10:07 Carolyn-Colace PO Not Given BID [facility] Sennosides 17.2 mg 04/16/18 22:37 Senokot PO Q12H PRN Moderate Constipation Sodium Chloride 2 ml 04/16/18 22:37 Ns Flush IV.FLUSH PRN PRN FLUSH AFTER USING IV ACCESS Temazepam 15 mg 04/16/18 22:41 04/16/18 23:58 Restoril PO 15 mg HS PRN Administration INSOMNIA Valsartan 160 mg 04/17/18 09:00 04/18/18 10:06 Diovan PO Not Given BID [facility] Allergies/Adverse Reactions: Allergies Allergy/AdvReac Type Severity Reaction Status Date / Time codeine AdvReac Intermediate Itching Verified 04/16/18 23:51 Physical Exam Vital signs: Vital Signs 04/17/18 11:00 04/17/18 11:51 04/17/18 12:00 Temperature 98.2 F Pulse Rate 101 H 82 Respiratory Rate 18 Blood Pressure 164/73 H Pulse Oximetry 95 98 04/17/18 13:00 04/17/18 14:00 04/17/18 15:00 Temperature 99 F 100.5 F H Pulse Rate 71 92 H 90 Respiratory Rate 20 18 20 Blood Pressure 160/69 H 169/79 H 172/74 H Pulse Oximetry 98 98 97 04/17/18 19:00 04/17/18 23:00 04/17/18 23:10 Temperature 100.7 F H Pulse Rate 72 80 Respiratory Rate 16 Blood Pressure 173/72 H Pulse Oximetry 99 04/17/18 23:15 04/18/18 03:00 04/18/18 05:46 Temperature 100.0 F H 97.4 F L Pulse Rate 70 77 Respiratory Rate 18 18 18 Blood Pressure 167/76 H 176/76 H Pulse Oximetry 99 04/18/18 07:00 Temperature 98.9 F Pulse Rate 70 Respiratory Rate 18 Blood Pressure 167/70 H Pulse Oximetry Intake & Output 04/17/18 04/18/18 04/18/18 18:59 06:59 18:59 Intake Total 1000 / 1000 2372 / 2372 Output Total 350 / 350 1150 / 1150 Balance 650 / 650 1222 / 1222 Weight 77 kg Intake: IV 1000 / 1000 2347 / 2347 NS Inj 1,000 ML @ 84 mls/hr IV. 1000 / 1000 2347 / 2347 CONT .[id number] [facility] Rx#:[id number] Oral 25 / 25 Output: Urine 350 / 350 100 / 100 Urine Amount (Catheter) 1050 / 1050 Indwelling Temp Sensing 1050 / 1050 Catheter Other: # Voids 3 # Incontinent Voids 2 Date of Last Bowel Movement 04/14/18 04/14/18 # Bowel Movements 0 - Routine Neurological Exam alert, speech is dysarthric but not aphasic. Mild left hemispatial neglect PERRL. EOM intact--no longer with severe right gaze preference. MOTOR 0/5 LUE and LLE. 5/5 RUE and RLE - Urinary Catheter Management Indwelling Temp Sensing Catheter Cath placed during this visit: yes, but has since been removed by the nurse Reason for continuing: Hourly intake/output Insertion date: 04/17/18 Insertion time: 04:45 Removal date: 04/17/18 Removal time: 23:30 Objective Laboratory Results - last 24 hr 04/17/18 04/17/18 21:30 23:30 POC Glucose 189 H Urine Color Straw Urine Clarity Clear Urine pH 7.0 Ur Specific [place] 1.011 Urine Protein Negative Urine Glucose (UA) 50 Urine Ketones Negative Urine Occult Blood Moderate H Urine Nitrate Negative Urine Bilirubin Negative Urine Urobilinogen 2.0 H Ur Leukocyte Esterase Negative Urine RBC 39 H Urine WBC 3 Ur Squamous Epith Cells <1 Urine Bacteria Rare H Urine Mucus Few H Micro UA Comment Cath-culture ind Urine Culture Comments Cath-cult indicated Review/Management - Diagnosis (1) Stroke due to embolism of cerebral artery Code(s): I63.40 - Cerebral infarction due to embolism of unspecified cerebral artery Status: Acute Current Visit: Yes - Review/Management Plan: continue plavix and asa. Would not recommend anticoagulation now given extent of the stroke on MRI and risk of hemorrhagic conversion
--- NOTE | 2018-04-18 10:58 | P.PNCC ---
Subjective Subjective Remarks/Hospital Course: 04/16: 57 yo female who by report awoke morning with L hemiparesis and inability to walk. Presented to OSH and I rec'd a call yesterday req transfer. Admitted to ICU and overnight had worsening of stroke/new symptoms manifesting as dysarthria. According to RN, that has slightly improved. Still able to swallow some by report. Pt largely noncommunicative at present so history obtained from EMR, RN, and outside physician. 04/17: Resting in bed. Dense left hemiplegia. Being started on aspirin and Plavix per neurology. MRI showed right MCA territory ischemic infarcts. 04/18: Awake and alert. Left hemiplegia persists. Not in any acute distress. Feeling anxiety. Objective Vital Signs / I&O: Vital Signs 04/17/18 11:00 04/17/18 11:51 04/17/18 12:00 Temperature 98.2 F Pulse Rate 101 H 82 Respiratory Rate 18 Blood Pressure 164/73 H Pulse Oximetry 95 98 04/17/18 13:00 04/17/18 14:00 04/17/18 15:00 Temperature 99 F 100.5 F H Pulse Rate 71 92 H 90 Respiratory Rate 20 18 20 Blood Pressure 160/69 H 169/79 H 172/74 H Pulse Oximetry 98 98 97 04/17/18 19:00 04/17/18 23:00 04/17/18 23:10 Temperature 100.7 F H Pulse Rate 72 80 Respiratory Rate 16 Blood Pressure 173/72 H Pulse Oximetry 99 04/17/18 23:15 04/18/18 03:00 04/18/18 05:46 Temperature 100.0 F H 97.4 F L Pulse Rate 70 77 Respiratory Rate 18 18 18 Blood Pressure 167/76 H 176/76 H Pulse Oximetry 99 04/18/18 07:00 Temperature 98.9 F Pulse Rate 70 Respiratory Rate 18 Blood Pressure 167/70 H Pulse Oximetry Intake & Output 04/17/18 04/18/18 04/18/18 18:59 06:59 18:59 Intake Total 1000 / 1000 2372 / 2372 Output Total 350 / 350 1150 / 1150 Balance 650 / 650 1222 / 1222 Weight 77 kg Intake: IV 1000 / 1000 2347 / 2347 NS Inj 1,000 ML @ 84 mls/hr IV. 1000 / 1000 2347 / 2347 CONT .[id number] [facility] Rx#:[id number] Oral 25 / 25 Output: Urine 350 / 350 100 / 100 Urine Amount (Catheter) 1050 / 1050 Indwelling Temp Sensing 1050 / 1050 Catheter Other: # Voids 3 # Incontinent Voids 2 Date of Last Bowel Movement 04/14/18 04/14/18 # Bowel Movements 0 Result Diagrams: 04/17/18 03:05 04/17/18 05:39 Objective Remarks: HEENT/Neuro: No pallor or icterus, tongue moist, ALYSSA, Awake alert oriented 3 , dysarthria noted, left-sided facial weakness, dense left hemiplegia Neck: No JVD Chest/pulmonary: CTA bilaterally Cardiovascular: S1-S2 regular no gallop or murmur GI/abdomen: Soft, nontender, bowel sounds present Extremities: Warm bilaterally, no edema Assessment and Plan - Assessment and Plan Plan: Subacute CVA -No heparin per neurology in view of large right parietal infarct on MRI. -Neurology consultation noted. -Aspirin, plavix atorvastatin -PT and OT eval and treat as tolerated Right internal carotid atheroma -Vascular surgery consultation for evaluation of surgical intervention if indicated Hypertension -Norvasc, losartan Dyslipidemia -Atorvastatin Diabetes mellitus -Insulin sliding scale DVT GI prophylaxis -Teds SCDs -Subcu heparin -Pepcid
[2018-04-18] MEDS: ALPRAZolam 0.25 MG Tablet PO PRN ×2 (11:19→19:45)
[2018-04-18] MEDS: Sod Chloride 0.9% Inj 1,000 ML IV.CONT SCH (11:45)
--- NOTE | 2018-04-18 18:40 | ECHRPT ---
Indication: CVA/TIA CONCLUSIONS Normal left ventricular size. Mild concentric left ventricular hypertrophy. The left ventricular systolic function is hyperdynamic with an estimated ejection fraction in the ra nge of 65- 70%. Trace mitral valve regurgitation. There is trace tricuspid valve regurgitation. Trivial pericardial effusion. BP: / HR: Rhythm: Sinus MEASUREMENTS (Male / Female) Normal Values Technical Quality:Fair 2D ECHO LV Diastolic Diameter PLAX 4.1 cm 4.2 - 5.9 / 3.9 - 5.3 cm LV Systolic Diameter PLAX 2.5 cm IVS Diastolic Thickness 1.1 cm 0.6 - 1.0 / 0.6 - 0.9 cm LVPW Diastolic Thickness 1.1 cm 0.6 - 1.0 / 0.6 - 0.9 cm LV Relative Wall Thickness 0.5 RV Internal Dim ED PLAX 2.8 cm LVOT Diameter 2.0 cm Aortic Root Diameter 2.6 cm LA Systolic Diameter LX 3.4 cm 3.0 - 4.0 / 2.7 - 3.8 cm M-MODE AV Cusp Separation MM 1.6 cm DOPPLER AV Peak Velocity 175.0 cm/s AV Peak Gradient 12.3 mmHg AV Mean Gradient 6.0 mmHg AV Velocity Time Integral 29.3 cm LVOT Peak Velocity 119.0 cm/s LVOT Peak Gradient 5.7 mmHg LVOT Velocity Time Integral 23.6 cm AV Area Cont Eq vti 2.7 cm AV Area Cont Eq pk 2.2 cm Mitral E Point Velocity 56.8 cm/s Mitral A Point Velocity 71.6 cm/s Mitral E to A Ratio 0.8 LV E' Lateral Velocity 8.7 cm/s Mitral E to LV E' Lateral Ratio 6.5 LV E' Septal Velocity 5.4 cm/s Mitral E to LV E' Septal Ratio 10.6 PV Peak Velocity 83.5 cm/s PV Peak Gradient 2.8 mmHg FINDINGS LEFT VENTRICLE Normal left ventricular size. Mild concentric left ventricular hypertrophy. The left ventricular systolic function is hyperdynamic with an estimated ejection fraction in the ra nge of 65- 70%. RIGHT VENTRICLE Normal right ventricular size and systolic function. LEFT ATRIUM The left atrial size is normal. RIGHT ATRIUM The right atrial size is normal. ATRIAL SEPTUM No atrial level shunt is demonstrated by color flow Doppler interrogation. AORTA The aortic root and proximal ascending aorta are not well visualized. MITRAL VALVE Trace mitral valve regurgitation. AORTIC VALVE Trileaflet aortic valve. No aortic valve stenosis or regurgitation. TRICUSPID VALVE There is trace tricuspid valve regurgitation. PULMONARY VALVE The pulmonary valve is not well visualized. VESSELS The inferior vena cava is normal in size. PERICARDIUM Trivial pericardial effusion. Jhonatan Smith MD, FACC (Electronically Signed) Final Date:18 April 2018 18:39
[2018-04-19] MEDS: Heparin - SQ 10,000 UNITS/ML Vial SQ SCH ×3 (00:03→16:41)
[2018-04-19] MEDS: Acetaminophen 325 MG Tablet PO PRN ×2 (00:10→16:40)
[2018-04-19] MEDS: Insulin NovoLOG Aspart Correctional Sugar Inj SQ SCH ×5 (00:30→23:41)
[2018-04-19] MEDS: Sod Chloride 0.9% Inj 1,000 ML IV.CONT SCH (03:19)
[2018-04-19] MEDS: Chlorhexidine Gluconate 2% 1 Pack (2 Cloths) TOPICAL SCH (05:09)
[2018-04-19] MEDS: ALPRAZolam 0.25 MG Tablet PO PRN (05:34)
[2018-04-19] MEDS: Senna/Docusate Sodium 8.6/50 MG Tablet PO SCH (08:32)
[2018-04-19] MEDS: Famotidine PF Inj 20 MG/2 ML Vial IV.PUSH SCH (08:33)
[2018-04-19] MEDS: Famotidine 20 MG Tablet PO SCH (08:33)
[2018-04-19] MEDS: Aspirin 325 MG Tablet PO SCH (08:33)
--- NOTE | 2018-04-19 11:34 | P.PNIM ---
Subjective Interval history: Patient still has poor movement on the left side. She is looking forward to PT today. No complaints. Physical Exam Vital signs: Vital Signs 04/18/18 12:00 04/18/18 15:00 04/18/18 16:00 Temperature 97.9 F 98 F Pulse Rate 71 77 72 Respiratory Rate 16 18 Blood Pressure 146/63 H 164/79 H Pulse Oximetry 04/18/18 20:00 04/19/18 00:00 04/19/18 01:14 Temperature 97.2 F L 99.9 F H Pulse Rate 79 96 H Respiratory Rate 16 16 16 Blood Pressure 190/82 H 184/83 H Pulse Oximetry 98 98 04/19/18 01:30 04/19/18 04:00 04/19/18 05:08 Temperature 98.4 F Pulse Rate 71 Respiratory Rate 16 18 18 Blood Pressure 147/67 H Pulse Oximetry 100 Intake & Output 04/18/18 04/19/18 04/19/18 18:59 06:59 18:59 Intake Total 464 / 464 1000 / 1000 Output Total 100 / 100 Balance 364 / 364 1000 / 1000 Weight 75.2 kg Intake: IV 439 / 439 1000 / 1000 NS Inj 1,000 ML @ 84 mls/hr IV. 439 / 439 1000 / 1000 CONT .[id number] [facility] Rx#:[id number] Oral 25 / 25 Output: Urine 100 / 100 Other: # Voids 3 2 # Incontinent Voids 2 Date of Last Bowel Movement 04/14/18 # Bowel Movements 0 - Routine HEENT Exam Comments: GENERAL: NAD, A&Ox2 HEAD: Normocephalic. NECK: Supple, trachea midline. No lymphadenopathy. EYES: No scleral icterus. No injection or drainage. CARDIOVASCULAR: Regular rate and rhythm without murmurs, gallops, or rubs. RESPIRATORY: Breath sounds equal bilaterally. No accessory muscle use. GASTROINTESTINAL: Abdomen soft, non-tender, nondistended. MUSCULOSKELETAL: No cyanosis, or edema. SKIN: Warm and dry. NEURO: Left hemiplegia. - Urinary Catheter Management Indwelling Temp Sensing Catheter Cath placed during this visit: yes, but has since been removed by the nurse Reason for continuing: Hourly intake/output Insertion date: 04/17/18 Insertion time: 04:45 Removal date: 04/17/18 Removal time: 23:30 Results - Labs CBC & Chem 7: 04/17/18 03:05 04/17/18 05:39 Laboratory Results - last 24 hr 04/18/18 04/19/18 23:41 09:27 POC Glucose 180 H 177 H Assessment and Plan - Plan 57-year-old female admitted secondary to acute CVA Acute on subacute CVA Continue aspirin, Plavix, atorvastatin Neurology following Continue physical therapy and Occupational Therapy Right internal carotid atheroma Vascular surgery consult pending Hypertension Continue baseline treatment Follow blood pressures Adjust treatments as needed Continue Norvasc and losartan Hyperlipidemia Continue present treatment Follow as an outpatient Continue atorvastatin Diabetes mellitus type 2 Follow blood sugars Insulin sliding scale Diabetic diet DVT prophylaxis SCDs
--- NOTE | 2018-04-19 16:16 | P.PNNEU ---
Subjective Subjective Comments: No acute events reported No change in left weakness Active Medications: Active Medications Generic Name Dose Route Start Last Admin Trade Name Saul PRN Reason Stop Dose Admin Acetaminophen 650 mg 04/17/18 15:12 04/19/18 00:10 Tylenol PO 650 mg Q4H PRN Administration PAIN 1 TO 10 Acetaminophen 650 mg 04/17/18 15:13 Tylenol PO Q4H PRN FEVER Al Hydroxide/Mg Hydroxide 30 ml 04/16/18 22:37 Milk Of Magnesia Liq PO Q12H PRN Mild Constipation Alprazolam 0.25 mg 04/18/18 10:00 04/19/18 05:34 Xanax PO 0.25 mg Q8H PRN Administration ANXIETY Aspirin 325 mg 04/17/18 09:00 04/19/18 08:33 Aspirin PO 325 mg DAILY GLEN Administration Atorvastatin Calcium 20 mg 04/17/18 09:00 04/19/18 08:32 Lipitor PO 20 mg DAILY GLEN Administration Bisacodyl 10 mg 04/16/18 22:37 Dulcolax Supp RECTAL DAILY PRN SEVERE CONSITIPATION Chlorhexidine Gluconate 3 pack 04/17/18 04:00 Chlorhexidine 2% Cloth TOPICAL 04/22/18 03:59 DAILY@0400 PRN Extra cloth needed Chlorhexidine Gluconate 3 pack 04/17/18 04:00 04/19/18 05:09 Chlorhexidine 2% Cloth TOPICAL 04/22/18 03:59 Not Given DAILY@0400 GLEN Clopidogrel Bisulfate 75 mg 04/17/18 09:00 04/19/18 08:32 Plavix PO 75 mg DAILY GLEN Administration Dextrose 50 ml 04/16/18 22:37 D50w Vial IV.PUSH UNSCH PRN PER HYPOGLYCEMIA PROTOCOL Famotidine 20 mg 04/17/18 09:00 04/19/18 08:33 Pepcid PO 20 mg BID GLEN Administration Famotidine 20 mg 04/17/18 09:00 04/19/18 08:33 Pepcid Pf Inj IV.PUSH Not Given Q12HR GLEN Glucagon 1 mg 04/16/18 22:37 Glucagon Inj OTHER PRN PRN for Hypoglycemia Protocol Heparin Sodium (Porcine) 5,000 units 04/16/18 23:00 04/19/18 08:33 Heparin Inj SQ 5,000 units Q8H GLEN Administration Sodium Chloride 1,000 mls @ 84 mls/hr 04/16/18 22:45 04/19/18 03:19 Ns Inj IV.CONT Infused .[id number] [facility] Infusion Insulin Aspart 0 unit 04/17/18 08:00 04/19/18 11:31 Novolog Insulin Suppl Scale Inj SQ 1 unit ACHS GLEN Administration Protocol Lactulose 30 ml 04/16/18 22:37 Lactulose Liq PO DAILY PRN SEVERE CONSITIPATION Senna/Docusate Sodium 1 tab 04/17/18 09:00 04/19/18 08:32 Carolyn-Colace PO 1 tab BID GLEN Administration Sennosides 17.2 mg 04/16/18 22:37 Senokot PO Q12H PRN Moderate Constipation Sodium Chloride 2 ml 04/16/18 22:37 Ns Flush IV.FLUSH PRN PRN FLUSH AFTER USING IV ACCESS Temazepam 15 mg 04/16/18 22:41 04/16/18 23:58 Restoril PO 15 mg HS PRN Administration INSOMNIA Valsartan 160 mg 04/17/18 09:00 04/19/18 08:32 Diovan PO 160 mg BID GLEN Administration Allergies/Adverse Reactions: Allergies Allergy/AdvReac Type Severity Reaction Status Date / Time codeine AdvReac Intermediate Itching Verified 04/16/18 23:51 Physical Exam Vital signs: Vital Signs 04/18/18 20:00 04/19/18 00:00 04/19/18 01:14 Temperature 97.2 F L 99.9 F H Pulse Rate 79 96 H Respiratory Rate 16 16 16 Blood Pressure 190/82 H 184/83 H Pulse Oximetry 98 98 04/19/18 01:30 04/19/18 04:00 04/19/18 05:08 Temperature 98.4 F Pulse Rate 71 Respiratory Rate 16 18 18 Blood Pressure 147/67 H Pulse Oximetry 100 Intake & Output 04/18/18 04/19/18 04/19/18 18:59 06:59 18:59 Intake Total 464 / 464 1000 / 1000 Output Total 100 / 100 Balance 364 / 364 1000 / 1000 Weight 75.2 kg Intake: IV 439 / 439 1000 / 1000 NS Inj 1,000 ML @ 84 mls/hr IV. 439 / 439 1000 / 1000 CONT .[id number] [facility] Rx#:[id number] Oral 25 / 25 Output: Urine 100 / 100 Other: # Voids 3 2 # Incontinent Voids 2 Date of Last Bowel Movement 04/14/18 # Bowel Movements 0 - Routine Neurological Exam alert, speech dysarthric CN Perrl, extraoccular movements normal. mild LUMN 7 palsey MOTOR--0/5 LUE and LLE strength. 5/5 rue and rle strength - Urinary Catheter Management Indwelling Temp Sensing Catheter Cath placed during this visit: yes, but has since been removed by the nurse Reason for continuing: Hourly intake/output Insertion date: 04/17/18 Insertion time: 04:45 Removal date: 04/17/18 Removal time: 23:30 Objective Laboratory Results - last 24 hr 04/18/18 04/19/18 04/19/18 23:41 09:27 13:48 POC Glucose 180 H 177 H 140 H Microbiology 04/17/18 23:30 Urine Culture - Preliminary Catheterized Urine gram positive cocci Review/Management - Diagnosis (1) Stroke due to embolism of cerebral artery Code(s): I63.40 - Cerebral infarction due to embolism of unspecified cerebral artery Status: Acute Current Visit: Yes - Review/Management Plan: continue plavix and asa. neuro exam stable
[2018-04-20] MEDS: Famotidine 20 MG Tablet PO SCH ×3 (00:28→21:21)
[2018-04-20] MEDS: Senna/Docusate Sodium 8.6/50 MG Tablet PO SCH ×3 (00:28→21:20)
[2018-04-20] MEDS: Famotidine PF Inj 20 MG/2 ML Vial IV.PUSH SCH ×3 (00:28→21:19)
[2018-04-20] MEDS: Heparin - SQ 10,000 UNITS/ML Vial SQ SCH ×4 (00:30→23:38)
--- NOTE | 2018-04-20 01:10 | CT ---
EXAM DATE: 04/20/2018 12:59 AM EDT AGE/SEX: 57 years / Female INDICATIONS: Trauma; fall. CLINICAL DATA: This is the patient's initial encounter. Patient reports that signs and symptoms have been present for 1 day and indicates a pain score of 4/10. MEDICAL/SURGICAL HISTORY: Stroke. None. RADIATION DOSE: 56.35 CTDI (mGy) COMPARISON: [facility], MR HEAD W & W/O CONTRAST, 04/17/2018. . TECHNIQUE: CT of the head without contrast. Using automated exposure control and adjustment of the mA and/or kV according to patient size, radiation dose was kept as low as reasonably achievable to ob tain optimal diagnostic quality images. DICOM format image data is available electronically for revi ew and comparison. FINDINGS: Cerebrum: Encephalomalacia in the right temporal and parietal mid to high convexities consistent wit h prior right MCA territory infarction. The ventricles are normal for age. No evidence of midline susi ft, mass lesion, hemorrhage or acute infarction. No extraaxial fluid collections are seen. Posterior Fossa: The cerebellum and brainstem are intact. The 4th ventricle is midline. The cerebe llopontine angle is unremarkable. Extracranial: The visualized portion of the orbits is intact. Skull: The calvaria is intact. No evidence of skull fracture. CONCLUSION: 1. Chronic large right MCA territory infarct. 2. No acute intracranial abnormality or significant interval change. Electronically signed by: Jorgito Carbone MD 04/20/2018 1:09 AM EDT
--- NOTE | 2018-04-20 07:24 | P.PNVS ---
Subjective Subjective/Hospital Course: Pt stable neuro exam, no motor function L UE/LE and persistent dysarthria Objective Vital Signs / I&O: Vital Signs 04/19/18 08:00 04/19/18 16:00 04/19/18 20:15 Temperature 97.5 F L 99.0 F Pulse Rate 98 H 85 78 Respiratory Rate 18 18 Blood Pressure 171/72 H 165/73 H Pulse Oximetry 99 99 04/20/18 00:00 04/20/18 04:00 Temperature 98.1 F 97.2 F L Pulse Rate 74 75 Respiratory Rate 18 18 Blood Pressure 187/77 H 171/68 H Pulse Oximetry 100 98 Intake & Output 04/19/18 04/20/18 04/20/18 18:59 06:59 18:59 Intake Total 720 / 720 240 / 240 Output Total 100 / 100 Balance 620 / 620 240 / 240 Weight 76.6 kg Intake: Oral 720 / 720 240 / 240 Output: Urine 100 / 100 Other: # Voids 2 2 # Incontinent Voids 2 # Urine Diapers 1 Date of Last Bowel Movement 04/19/18 04/19/18 # Bowel Movements 1 Physical Exam: L UE and LE with no motor function, R UE/LE ok + dysarthria Laboratory Results - last 24 hr 04/19/18 04/19/18 04/19/18 09:27 13:48 18:21 POC Glucose 177 H 140 H 144 H 04/19/18 20:05 POC Glucose 132 H Microbiology 04/17/18 23:30 Urine Culture - Preliminary Catheterized Urine gram positive cocci Impressions Head CT 04/20/18 00:27 CONCLUSION: 1. Chronic large right MCA territory infarct. 2. No acute intracranial abnormality or significant interval change. Assessment and Plan - Assessment (1) Stroke due to embolism of cerebral artery Code(s): I63.40 - Cerebral infarction due to embolism of unspecified cerebral artery Status: Acute - Plan R CCA plaque and significant CVA No indication for prophylactic repair, which likely wound entail retrograde CCA stent. I think best option at this point is stroke rehab and medical management. Happy to see back in my clinic in 1 month with CTA neck (duplex may not show lesions well) Delvis Knight MD FACS RPVI cfa [facility] - [facility] V[facility] at [facility] [phone] Discharge Planning: clear to d/c from vascular surgery standpoint
[2018-04-20] MEDS: Chlorhexidine Gluconate 2% 1 Pack (2 Cloths) TOPICAL SCH (08:12)
[2018-04-20] MEDS: Acetaminophen 325 MG Tablet PO PRN ×3 (10:11→21:20)
[2018-04-20] MEDS: Aspirin 325 MG Tablet PO SCH (10:13)
[2018-04-20] MEDS: Insulin NovoLOG Aspart Correctional Sugar Inj SQ SCH ×4 (10:14→21:44)
--- NOTE | 2018-04-20 11:28 | P.DS ---
Date of admission: 04/16/18 22:05 Primary care physician: No Primary Care Physician Brief History from admission: 57-year-old -Filipino female with past medical history significant for diabetes mellitus, hypertension, dyslipidemia, presented to emergency department at [facility] as a wake up STROKE. Her chief complaint was left upper and left lower extremity weakness that began when she woke up in the morning. She had no symptoms when she went to bed in the evening and night before. She denies any visual changes, headaches, nausea, or vomiting. She denies experiencing similar symptoms in the past. Prior to episode patient was in her usual health of state. The patient is 55-year-old brother recently had a stroke a few months ago. She denies any chest pain, palpitation, shortness of breath or diaphoresis. She denies any recent changes in medications, but does take estradiol. She denies tobacco abuse. MRI of the brain shows multiple infarcts in the right cerebral hemisphere mainly in the frontal lobe, temporal lobe, and a infarct affecting the caudate nucleus. 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 This is most likely the cause of her stroke and patient was therefore transferred to [facility] for higher level of care neurosurgery evaluation by Dr. Knight. DS: Medications - Discharge Medications Prescriptions: alprazolam [Xanax] 0.25 mg PO Q8H PRN #12 tab PRN Reason: Anxiety aspirin 325 mg PO DAILY #30 tab clopidogrel [Plavix] 75 mg PO DAILY #30 tab temazepam 15 mg PO HS PRN 7 Days #7 cap PRN Reason: Insomnia DS: Summary Hospital Course: Mrs. Saucedo is a 57 year old female. She came into the hospital secondary to an acute stroke. Findings of carotid artery disease are present but vascular surgery has evaluated this condition and only recommends medical management and physical therapy at this time. No need for acute surgery. Follow-up with vascular surgery as an outpatient. Patient has demonstrated medical stability over the past 2 days and she is medically stable and cleared for discharge to halfway facility today to continue physical therapy. Discharge medications are as listed below. - Time Spent with Patient Total time spent providing and/or coordinating discharge services: - Quality: VTE Deep Vein Thrombosis/Pulmonary Embolism Present on Admission: No Exam Vital signs: Vital Signs 04/19/18 16:00 04/19/18 20:15 04/20/18 00:00 Temperature 97.5 F L 99.0 F 98.1 F Pulse Rate 85 78 74 Respiratory Rate 18 18 18 Blood Pressure 171/72 H 165/73 H 187/77 H Pulse Oximetry 99 99 100 04/20/18 04:00 04/20/18 08:00 Temperature 97.2 F L 98 F Pulse Rate 69 92 H Respiratory Rate 18 20 Blood Pressure 171/68 H 191/91 H Pulse Oximetry 98 98 Intake & Output 04/19/18 04/20/18 04/20/18 18:59 06:59 18:59 Intake Total 720 / 720 240 / 240 Output Total 100 / 100 Balance 620 / 620 240 / 240 Weight 76.6 kg Intake: Oral 720 / 720 240 / 240 Output: Urine 100 / 100 Other: # Voids 2 2 # Incontinent Voids 2 # Urine Diapers 1 Date of Last Bowel Movement 04/19/18 04/19/18 # Bowel Movements 1 Results Procedures completed during hospitalization: None Labs on day of discharge: Labs from last 24 hours 04/20/18 04/19/18 04/19/18 07:56 20:05 18:21 POC Glucose 171 H 132 H 144 H 04/19/18 13:48 POC Glucose 140 H - Impressions ITS Impressions Head MRI 04/17/18 00:00 CONCLUSION: Multiple areas of acute infarct in the distribution of the right MCA. Largest area involves the right parietal lobe. No evidence of midline shift/herniation. No evidence of hemorrhage. Neck CTA 04/17/18 00:00 CONCLUSION: 1. Focal eccentric plaque of the mid right common carotid artery resulting in approximately 50% stenosis. 2. No hemodynamically significant carotid stenosis identified. Head CTA 04/17/18 03:30 CONCLUSION: Occlusion of the posterior division of the right MCA proximally 1.7 cm distal to the trifurcation. Head MRA 04/17/18 04:56 CONCLUSION: 1. Infarction right parietal lobe. Head CT 04/20/18 00:27 CONCLUSION: 1. Chronic large right MCA territory infarct. 2. No acute intracranial abnormality or significant interval change. Discharge Plan - Discharge Disposition Patient Disposition: Discharge to SNF - Discharge Condition Condition: Stable - Discharge Order Discharge Orders: Discharge Order (Routine); Ordered 04/20/18 Ordered By: Salvador C Lincoln - Discharge Details Anticipated Discharge Date: 04/20/18 - Physicians Team Primary Care Provider: Primary Care June Mckinley Attending Provider: Salvador Lincoln Other Providers: Kash Crowder MD, PhD ; Delvis Knight MD - Rxs /Orders / Referrals /Forms Prescriptions: New alprazolam [Xanax] 0.25 mg Tablet 0.25 mg PO Q8H PRN (Reason: Anxiety) Qty: 12 RF: 0 aspirin 325 mg Tablet 325 mg PO DAILY Qty: 30 RF: 0 clopidogrel [Plavix] 75 mg Tablet 75 mg PO DAILY Qty: 30 RF: 0 temazepam 15 mg Capsule 15 mg PO HS PRN (Reason: Insomnia) 7 Days Qty: 7 RF: 0 Continue atorvastatin [Lipitor] 20 mg Tablet 20 mg PO DAILY metformin [Glucophage] 1,000 mg Tablet 1,000 mg PO BID valsartan [Diovan] 160 mg Tablet 160 mg PO BID Discontinued alprazolam [Xanax] 1 mg Tablet 1 mg PO HS PRN (Reason: Insomnia) amlodipine [Norvasc] 5 mg Tablet 5 mg PO DAILY Referrals: Primary Care June Mckinley [Primary Care Provider] - See Instructions Delvis Knight MD [Physician] - See Instructions (Your follow up appointment is scheduled on 05/21/18 at 11:30 with a CTA neck )
[2018-04-20] MEDS ORDERED: amLODIPine 5 MG Tablet PO ONE (13:00)
[2018-04-20] MEDS: ALPRAZolam 0.25 MG Tablet PO PRN ×2 (13:58→21:22)
[2018-04-20] MEDS: Gabapentin 100 MG Capsule PO SCH (17:20)
[2018-04-20] MEDS: Sod Chloride 0.9% Inj 1,000 ML IV.CONT SCH ×2 (23:58→23:59)
[2018-04-21] MEDS: Temazepam 15 MG Capsule PO PRN (00:33)
[2018-04-21] MEDS: Chlorhexidine Gluconate 2% 1 Pack (2 Cloths) TOPICAL SCH (06:32)
[2018-04-21] MEDS: Famotidine 20 MG Tablet PO SCH (08:16)
[2018-04-21] MEDS: Senna/Docusate Sodium 8.6/50 MG Tablet PO SCH (08:17)
[2018-04-21] MEDS: Aspirin 325 MG Tablet PO SCH (08:17)
[2018-04-21] MEDS: Gabapentin 100 MG Capsule PO SCH ×3 (08:17→17:01)
[2018-04-21] MEDS: Insulin NovoLOG Aspart Correctional Sugar Inj SQ SCH ×3 (08:19→17:01)
[2018-04-21] MEDS: Famotidine PF Inj 20 MG/2 ML Vial IV.PUSH SCH (08:21)
[2018-04-21] MEDS: Heparin - SQ 10,000 UNITS/ML Vial SQ SCH ×2 (08:26→17:00)
[2018-04-21] MEDS ORDERED: amLODIPine 5 MG Tablet PO SCH (09:00)
--- NOTE | 2018-04-21 10:50 | XR ---
EXAM DATE: 04/21/2018 10:42 AM EDT AGE/SEX: 57 years / Female INDICATIONS: Left shoulder pain. CLINICAL DATA: This is the patient's subsequent encounter. Patient reports that signs and symptoms h ave been present for 4 - 6 days and indicates a pain score of 0/10. MEDICAL/SURGICAL HISTORY: Stroke. None. COMPARISON: No prior exams available for comparison. FINDINGS: Bony structures are intact and in normal alignment. Joints are intact without dislocation or signifi cant arthropathy. Osseous density is normal. Soft tissues are unremarkable. No radiopaque foreign bodies seen. CONCLUSION: No evidence of acute process or significant arthropathy. Electronically signed by: Usama Duron MD 04/21/2018 10:48 AM EDT
--- NOTE | 2018-04-21 11:26 | P.PNIM ---
Subjective Interval history: Patient discharged on 04/20/2018. Awaiting placement. Physical Exam Vital signs: Vital Signs 04/20/18 12:00 04/20/18 16:00 04/20/18 20:00 Temperature 98.6 F 97.9 F 98.5 F Pulse Rate 87 70 88 Respiratory Rate 20 20 18 Blood Pressure 181/77 H 160/76 H 146/69 H Pulse Oximetry 97 95 99 04/21/18 00:00 04/21/18 04:00 04/21/18 08:00 Temperature 98.6 F 98.2 F 98.4 F Pulse Rate 82 98 H 77 Respiratory Rate 18 18 20 Blood Pressure 146/77 H 152/68 H 166/79 H Pulse Oximetry 97 98 97 Intake & Output 04/20/18 04/21/18 04/21/18 18:59 06:59 18:59 Intake Total 120 / 120 Balance 120 / 120 Intake: Oral 120 / 120 Other: # Voids 4 9 Date of Last Bowel Movement 04/19/18 - Urinary Catheter Management Indwelling Temp Sensing Catheter Cath placed during this visit: yes, but has since been removed by the nurse Reason for continuing: Hourly intake/output Insertion date: 04/17/18 Insertion time: 04:45 Removal date: 04/17/18 Removal time: 23:30 Results - Labs CBC & Chem 7: 04/17/18 03:05 04/17/18 05:39 Laboratory Results - last 24 hr 04/20/18 04/20/18 04/20/18 13:09 16:55 21:39 POC Glucose 132 H 136 H 154 H 04/21/18 07:32 POC Glucose 214 H Microbiology 04/17/18 23:30 Catheterized Urine Urine Culture - Final Corynebacterium species gram positive cocci - Imaging Impressions Shoulder X-Ray 04/21/18 00:00 CONCLUSION: No evidence of acute process or significant arthropathy. - Procedures None Assessment and Plan - Plan 57-year-old female admitted secondary to acute CVA Patient discharged on 04/20/2018. Awaiting placement. Acute on subacute CVA Continue aspirin, Plavix, atorvastatin Continue physical therapy and Occupational Therapy and speech therapy Right internal carotid atheroma No vascular surgical intervention at this time is recommended Hypertension Continue Norvasc and losartan Hyperlipidemia Continue atorvastatin Diabetes mellitus type 2 Follow blood sugars Insulin sliding scale Diabetic diet DVT prophylaxis SCDs
== END 2018-04-21 18:36 ==
LOC: HCVI 22:05 → N05 04-18 20:06 → UNDODISIN 04-21 13:47
PROVIDERS: ADMIT Hospitalist; ATTEND Hospitalist